=== PATIENT | female | born 1975 | race Caucasian/White ===

== ENCOUNTER → 2024-06-02 07:18 | Outpatient (REF) | payer BC, SELFPAY | LOC: RAD 07:18 | PROVIDERS: ATTENDING PHYSICIAN Internal Medicine; FAMILY PHYSICIAN Physician Assistant | DX: N17.9 Acute kidney failure, unspecified (principal) | CPT/HCPCS: 76770 ==

== ENCOUNTER → 2024-07-24 17:49 | Outpatient (REF) | payer BC, SELFPAY | LOC: MRI 17:49 | PROVIDERS: ATTENDING PHYSICIAN Internal Medicine; FAMILY PHYSICIAN Physician Assistant | DX: D49.512 Neoplasm of unspecified behavior of left kidney (principal) | CPT/HCPCS: 74183; A9575 ==

== ENCOUNTER → 2025-08-27 06:58 | Outpatient (REF) | payer BC, SELFPAY ==
[2025-08-27] VITALS (8 sets, daily range): BP systolic 87–122; BP diastolic 66–82
[2025-08-27 07:23] LABS: Hematocrit 27.9 % (37.0-47.0); Hemoglobin 9.2 g/dL (12.0-16.0); Mean Corp Hgb Conc. 33.0 g/dL (33.0-37.0); Mean Corpuscular Volume 77.7 fL (81.0-99.0); Nucleated Red Blood Cells % 0 %; Platelet Count 178 10^3/uL (130-400); Red Cell Dist. Width 13.3 % (11.5-14.5)
[2025-08-27 07:31] LABS: INR 0.90; PT 12.7 Sec (11.4-14.6)
[2025-08-27] MEDS: ATIVAN 0.5 MG PO (08:05)
== END ==
LOC: RADI 06:58
PROVIDERS: ATTENDING PHYSICIAN Internal Medicine Hematology & Oncology; FAMILY PHYSICIAN Physician Assistant
DX: D64.9 Anemia, unspecified (principal)
CPT/HCPCS: 36415; 38222; 77012; 85025; 85610; 88305; 88311; 88312; 88313